=== PATIENT | female | born 1970 | race Caucasian/White ===

== ENCOUNTER 2021-03-16 17:41 | Emergency (ER) | payer BC ==
[~2021-03-16] VITALS: Ht 162.6 cm; Wt 61.7 kg
[2021-03-16 17:45] VITALS: BP_SYST 135
--- NOTE | 2021-03-16 17:45 | NUR ---
Placed in room 7 . Placed on security monitor, blood pressure machine and pulse oximeter. To gown for exam. Side rails up.
--- NOTE | 2021-03-16 17:46 | NUR ---
PT CAME TO ER C/O CHEST PAIN/PRESSURE THAT STARTED 1.5 WEEKS AGO. LAST NIGHT PAIN RADIATED TO BACK AND BECAME WORSE. PT DENIES TAKING ANYTHING FOR THE PAIN. STATES HX OF HTN. REPORTS FATHER'S SIDE HAS CARDIAC HX. PT IS AMBULATORY, AAOX4, V/S STABLE UPON ARRIVAL
--- NOTE | 2021-03-16 18:05 | NUR ---
ER DR. COSME AT THE BEDSIDE EXAMINING PT
[2021-03-16] MEDS ORDERED: ACETAMINOPHEN 500 MG TABLET PO ONE (18:15)
[2021-03-16] MEDS ORDERED: IBUP-1969 PO (18:26)
[2021-03-16 18:42] VITALS: BP_SYST 125
--- NOTE | 2021-03-16 18:42 | NUR ---
Patient given written and verbal discharge instructions and verbalizes understanding. ER MD discussed with patient the results and treatment provided. Patient in stable condition. ID arm band removed. Rx of IBUPROFEN given. Patient educated on pain management and to follow up with PMD. Pain Scale 0/10. Opportunity for questions provided and answered. Medication side effect fact sheet provided.
== END 2021-03-16 18:42 | disposition home or self-care (01) ==
LOC: SED 17:41
DX: R07.89 Other chest pain (principal); R10.9 Unspecified abdominal pain; Z88.0 Allergy status to penicillin
CPT/HCPCS: 93005; 99283

== ENCOUNTER 2021-03-18 22:45 | Emergency (ER) | payer BC ==
[~2021-03-18] VITALS: Ht 162.6 cm; Wt 61.7 kg
[~2021-03-18 22:45] MED LIST: IBUP-1969 PO
[2021-03-18 22:50] VITALS: BP_SYST 148
[2021-03-18] MEDS ORDERED: PRED20TA PO (23:11)
[2021-03-18] MEDS ORDERED: FAMO20TA8 PO (23:11)
[2021-03-18] MEDS ORDERED: DIPH25TA62 PO (23:11)
[2021-03-18] MEDS ORDERED: DIPHENHYDRAMINE INJ 50 MG/ML VIAL IM ONE (23:15)
[2021-03-18] MEDS ORDERED: FAMOTIDINE 20 MG TABLET PO ONE (23:15)
[2021-03-18] MEDS ORDERED: methylPREDNISolone SOD SUCC/PF 62.5 MG/ML VIAL IM ONE (23:15)
[2021-03-18 23:28] VITALS: BP_SYST 148
== END 2021-03-18 23:28 | disposition home or self-care (01) ==
LOC: SED 22:45
DX: R21 Rash and other nonspecific skin eruption (principal); T50.8X5A Adverse effect of diagnostic agents, initial encounter; Z91.041 Radiographic dye allergy status; Z88.0 Allergy status to penicillin; Z88.8 Allergy status to other drugs, medicaments and biological substances; Z79.899 Other long term (current) drug therapy; Y92.89 Other specified places as the place of occurrence of the external cause
CPT/HCPCS: 96372; 99284; J1200; J2930

== ENCOUNTER 2023-11-05 12:03 | Emergency (ER) | payer BC ==
[~2023-11-05] VITALS: Ht 162.6 cm; Wt 62.6 kg
[~2023-11-05 12:03] MED LIST changes: +DIPH25TA62 PO; +FAMO20TA8 PO; +PRED20TA PO
[2023-11-05 12:26] VITALS: BP_SYST 124; PULSE 80; RESP 18; TEMP 97.9; O2SAT 98
[2023-11-05] MEDS ORDERED: TRAM50TA2 PO (12:56)
[2023-11-05 13:04] VITALS: BP_SYST 124; PULSE 80; RESP 18; TEMP 97.9; O2SAT 98
== END 2023-11-05 13:04 | disposition home or self-care (01) ==
LOC: SED 12:03
DX: S09.90XA Unspecified injury of head, initial encounter (principal); I10 Essential (primary) hypertension; Z88.0 Allergy status to penicillin; Z91.048 Other nonmedicinal substance allergy status; Z88.8 Allergy status to other drugs, medicaments and biological substances; Z79.899 Other long term (current) drug therapy; W22.8XXA Striking against or struck by other objects, initial encounter; Y93.89 Activity, other specified; Y92.89 Other specified places as the place of occurrence of the external cause; Y99.8 Other external cause status
CPT/HCPCS: 99283